=== PATIENT | female | born 1975 | race Caucasian/White ===

== ENCOUNTER 2018-04-11 22:20 | Emergency (ER) | payer MEDICAID ==
[~2018-04-11] VITALS: Ht 172.7 cm; Wt 82.0 kg
[~2018-04-11 22:20] MED LIST: AZIT500T5 PO; DEC4T PO
[2018-04-11 22:28] VITALS: BP 129/84
[2018-04-11 23:12] LABS: URINE HCG NEGATIVE (NEG)
[2018-04-11 23:33] LABS: CLARITY,URINE CLOUDY (Clear); COLOR,URINE YELLOW (Yellow); GLUCOSE, URINE NEGATIVE (Neg); KETONES,URINE NEGATIVE (Neg); LEUKOCYTE ESTERASE ,URINE NEGATIVE (Neg); NITRITES, URINE NEGATIVE (Neg); OCCULT BLOOD,URINE NEGATIVE (Neg); PROTEIN,URINE NEGATIVE (Neg); UROBILINOGEN,URINE 0.2 E.U/dL (0.2-1.0)
[2018-04-11 23:44] LABS: MUCUS STRANDS MANY /LPF (Neg); SQUAMOUS EPITHELIAL CELL,UR MANY /LPF (FEW); UA COLLECTION TYPE CLN CATCH MIDSTREAM
[2018-04-11 23:46] LABS: AMORPHOUS URATES 4+
[2018-04-11 23:47] LABS: BACTERIA,URINE 1+ /HPF (Neg); RBC,URINE NONE SEEN /HPF (0-2)
[2018-04-12] MEDS ORDERED: SULF1TAB49 PO (00:01)
[2018-04-12] MEDS ORDERED: sulfamethoxazole/trimethoprim DS (800/160mg) tablet PO ONE (00:05)
== END 2018-04-12 00:19 | disposition home or self-care (01) ==
LOC: ER 22:20
DX: N39.0 Urinary tract infection, site not specified (principal); R07.81 Pleurodynia; Z88.0 Allergy status to penicillin; Z88.6 Allergy status to analgesic agent; Z79.2 Long term (current) use of antibiotics
CPT/HCPCS: 81001; 81025; 99284

== ENCOUNTER 2018-06-16 15:56 | Emergency (ER) | payer MEDICAID ==
[~2018-06-16] VITALS: Ht 170.2 cm; Wt 100.0 kg
[2018-06-16 16:03] VITALS: BP 128/88
[2018-06-16] MEDS ORDERED: TETRACAINE 0.5% 5 ML OPHTHALMIC DROPS LEFTEYE ONE (16:10)
[2018-06-16] MEDS ORDERED: ciprofloxacin 0.3% 2.5ml ophthalmic solution LEFTEYE ONE (16:10)
== END 2018-06-16 16:42 | disposition home or self-care (01) ==
LOC: ER 15:56
DX: H10.9 Unspecified conjunctivitis (principal); Z88.6 Allergy status to analgesic agent; Z88.0 Allergy status to penicillin
CPT/HCPCS: 99282

== ENCOUNTER 2018-06-30 01:24 | Emergency (ER) | payer MEDICAID ==
[~2018-06-30] VITALS: Ht 170.2 cm; Wt 101.8 kg
[2018-06-30 01:26] VITALS: BP 140/88
--- NOTE | 2018-06-30 01:29 | NUR ---
DR CHANG AT BEDSIDE WITH PT
[2018-06-30] MEDS ORDERED: CYCL-1 PO (01:34)
[2018-06-30] MEDS ORDERED: ACET-3067 PO (01:34)
[2018-06-30] MEDS ORDERED: cyclobenzaprine 10mg tablet PO ONE (01:35)
[2018-06-30] MEDS ORDERED: ketorolac trometh inj. 60 MG/2 ML VIAL IM ONE (01:35)
== END 2018-06-30 01:52 | disposition home or self-care (01) ==
LOC: ER 01:24
DX: G89.29 Other chronic pain (principal); M54.5 Low back pain; Z88.6 Allergy status to analgesic agent; Z88.0 Allergy status to penicillin
CPT/HCPCS: 96372; 99283; J1885

== ENCOUNTER 2018-07-08 08:19 | Emergency (ER) | payer MEDICAID ==
[~2018-07-08] VITALS: Ht 170.2 cm; Wt 101.8 kg
[~2018-07-08 08:19] MED LIST changes: +CYCL-1 PO
[2018-07-08 09:02] VITALS: BP 129/79
[2018-07-08 11:32] LABS: D-DIMER 0.66 MG/L FEU (0-0.50)
[2018-07-08] MEDS ORDERED: dexamethasone 4mg tablet PO STA (12:58)
[2018-07-08] MEDS ORDERED: ketorolac trometh inj. 60 MG/2 ML VIAL IM ONE ×2 (13:00→13:25)
--- NOTE | 2018-07-08 13:37 | NUR ---
torodol 60mg placed in sharps container. called pharmacy to reissue new dose. dose given to pt.
== END 2018-07-08 13:43 | disposition home or self-care (01) ==
LOC: ER 08:20
DX: M25.561 Pain in right knee (principal); I88.9 Nonspecific lymphadenitis, unspecified; M19.90 Unspecified osteoarthritis, unspecified site; Z88.0 Allergy status to penicillin; Z88.6 Allergy status to analgesic agent; Z79.2 Long term (current) use of antibiotics; Z79.899 Other long term (current) drug therapy
CPT/HCPCS: 36415; 85379; 93971; 96372; 99284; J1885; J8540

== ENCOUNTER 2018-07-15 07:53 | Emergency (ER) | payer MEDICAID ==
[~2018-07-15] VITALS: Ht 170.2 cm; Wt 105.0 kg
[2018-07-15 08:05] VITALS: BP 129/88
[2018-07-15] MEDS ORDERED: predniSONE 20 mg tablet PO ONE (08:45)
[2018-07-15] MEDS ORDERED: AZIT250T83 PO (08:51)
== END 2018-07-15 10:19 | disposition home or self-care (01) ==
LOC: ER 07:54
DX: J06.9 Acute upper respiratory infection, unspecified (principal); G89.29 Other chronic pain; Z88.0 Allergy status to penicillin; Z88.6 Allergy status to analgesic agent; Z79.899 Other long term (current) drug therapy
CPT/HCPCS: 99283; J7512

== ENCOUNTER 2018-07-17 23:23 | Emergency (ER) | payer MEDICAID ==
[~2018-07-17] VITALS: Ht 170.2 cm; Wt 85.0 kg
[~2018-07-17 23:23] MED LIST changes: +AZIT250T83 PO
[2018-07-17] MEDS ORDERED: GUAI120015 PO (23:33)
[2018-07-17 23:55] VITALS: BP 145/85
== END 2018-07-17 23:57 | disposition home or self-care (01) ==
LOC: ER 23:24
DX: J06.9 Acute upper respiratory infection, unspecified (principal); F41.9 Anxiety disorder, unspecified; G89.29 Other chronic pain; Z88.6 Allergy status to analgesic agent; Z88.0 Allergy status to penicillin
CPT/HCPCS: 93005; 99283; 99284

== ENCOUNTER 2018-07-25 18:57 | Emergency (ER) | payer MEDICAID ==
[~2018-07-25] VITALS: Ht 167.6 cm; Wt 96.8 kg
[~2018-07-25 18:57] MED LIST changes: -AZIT250T83 PO; +GUAI120015 PO
[2018-07-25] MEDS ORDERED: ipratropium/albuterol 3ml nebule NEB ONE (19:10)
[2018-07-25 19:12] VITALS: BP 140/83
[2018-07-25] MEDS ORDERED: PRED20TA PO (19:35)
[2018-07-25] MEDS ORDERED: ALBU6.7H INH (19:35)
== END 2018-07-25 20:01 | disposition home or self-care (01) ==
LOC: ER 18:58
DX: J45.909 Unspecified asthma, uncomplicated (principal); G89.29 Other chronic pain; Z88.0 Allergy status to penicillin; Z88.6 Allergy status to analgesic agent; Z79.899 Other long term (current) drug therapy; Z79.2 Long term (current) use of antibiotics; Z59.0 Homelessness
CPT/HCPCS: 71046; 94640; 94760; 99283

== ENCOUNTER 2018-10-09 15:59 | Emergency (ER) | payer MEDICAID ==
[~2018-10-09] VITALS: Ht 172.7 cm; Wt 104.5 kg
[~2018-10-09 15:59] MED LIST changes: +ALBU6.7H INH
[2018-10-09 16:13] VITALS: BP 142/103
[2018-10-09] MEDS ORDERED: ketorolac trometh inj. 60 MG/2 ML VIAL IM ONE (17:55)
== END 2018-10-09 18:15 | disposition home or self-care (01) ==
LOC: ER 15:59
DX: S29.011A Strain of muscle and tendon of front wall of thorax, initial encounter (principal); G89.29 Other chronic pain; Z88.0 Allergy status to penicillin; Z88.6 Allergy status to analgesic agent; Z79.899 Other long term (current) drug therapy; Z59.0 Homelessness; X58.XXXA Exposure to other specified factors, initial encounter; Y93.89 Activity, other specified; Y92.89 Other specified places as the place of occurrence of the external cause; Y99.8 Other external cause status
CPT/HCPCS: 71046; 96372; 99283; J1885

== ENCOUNTER 2019-01-25 07:25 | Emergency (ER) | payer MEDICAID ==
[~2019-01-25] VITALS: Ht 170.2 cm; Wt 102.7 kg
[~2019-01-25 07:25] MED LIST changes: -ALBU6.7H INH; +ALBU6.7H9 INH; -AZIT500T5 PO; +AZIT500T9 PO
[2019-01-25 07:53] LABS: CLARITY,URINE CLOUDY (Clear); COLOR,URINE YELLOW (Yellow); GLUCOSE, URINE NEGATIVE (Neg); KETONES,URINE NEGATIVE (Neg); LEUKOCYTE ESTERASE ,URINE MODERATE (Neg); NITRITES, URINE NEGATIVE (Neg); OCCULT BLOOD,URINE LARGE (Neg); PROTEIN,URINE NEGATIVE (Neg); UROBILINOGEN,URINE 0.2 E.U/dL (0.2-1.0)
[2019-01-25 07:56] LABS: UA COLLECTION TYPE CLN CATCH MIDSTREAM
[2019-01-25 07:59] LABS: SQUAMOUS EPITHELIAL CELL,UR MANY /LPF (FEW)
[2019-01-25 08:00] LABS: BACTERIA,URINE 2+ /HPF (Neg); RBC,URINE 0-2 /HPF (0-2); WBC,URINE 50-100 /HPF (0-4)
--- NOTE | 2019-01-25 08:12 | NUR ---
DR CURRY NOTIFIED PT URINE REJECTED FOR CULTURE, NO ORDER RECEIVED AT THIS TIME.
[2019-01-25 08:27] LABS: BASOPHILS % (AUTO) 0.8 % (0-1); EOSINOPHILS # (AUTO) 0.2 X10'3 (0-0.9); EOSINOPHILS % (AUTO) 3.6 % (0-6); HEMATOCRIT 34.5 % (35.0-45.0); HEMOGLOBIN 11.7 g/dl (12.0-16.0); LYMPHOCYTES # (AUTO) 1.7 X10'3 (1.1-4.8); LYMPHOCYTES % (AUTO) 28.8 % (21-51); MEAN CORPUSCULAR HEMOGLOBIN 29.4 PG (27.0-31.0); MEAN CORPUSCULAR HGB CONC 33.9 g/dL (33.0-36.5); MEAN CORPUSCULAR VOLUME 86.8 FL (78-98); MEAN PLATELET VOLUME 8.3 FL (7.4-10.4); MONOCYTES # (AUTO) 0.4 X10'3 (0-0.9); MONOCYTES % (AUTO) 7.5 % (2-12); NEUTROPHILS # (AUTO) 3.5 X10'3 (1.8-7.7); NEUTROPHILS % (AUTO) 59.3 % (42-75); PLATELET COUNT 207 X10'3 (140-440); RED BLOOD COUNT 3.97 X10'6 (4.20-5.60); RED CELL DISTRIBUTION WIDTH 13.4 % (11.5-14.5); WHITE BLOOD COUNT 5.9 X10'3 (4.5-11.0)
[2019-01-25 08:28] LABS: URINE HCG NEGATIVE (NEG)
[2019-01-25 08:34] LABS: ALANINE AMINOTRANSFERASE 17 U/L (12-78); ALBUMIN 3.2 G/DL (3.4-5.0); ALBUMIN/GLOBULIN RATIO 0.8 (1.1-1.5); ALKALINE PHOSPHATASE 61 IU/L (46-116); ANION GAP 3 (8-16); ASPARTATE AMINO TRANSFERASE 9 U/L (10-37); BILIRUBIN,TOTAL 0.1 MG/DL (0.1-1.0); BLOOD UREA NITROGEN 10 MG/DL (7-18); BUN/CREATININE RATIO 11.9 (6.6-38.0); CALCIUM 8.6 MG/DL (8.5-10.1); CHLORIDE 107 MMOL/L (99-107); CREATININE 0.84 MG/DL (0.40-0.90); GLUCOSE 102 MG/DL (70-104); LIPASE 234 U/L (73-393); SODIUM 139 MMOL/L (135-145); TOTAL CARBON DIOXIDE 28.8 MMOL/L (24-32); eGFR 75 ML/MIN
[2019-01-25] MEDS ORDERED: acetaminophen 325mg tablet PO ONE (08:45)
[2019-01-25] MEDS ORDERED: SULF1TAB49 PO (09:55)
--- NOTE | 2019-01-25 10:05 | NUR ---
STRAIGHT CATH URINE ORDERED, PT REFUSED STRAIGHT CATH, GAVE PT 5 WIPES ADN INSTRUCTED HOW TO PROVIDE CLEAN CATCH URINE, WILL NOTIFY PATRICIO HERRERA PT RETURN FOR EXAM, GAVE SBAR REPORT TO NEIL POWELL
--- NOTE | 2019-01-25 10:28 | NUR ---
DR CURRY AT BEDSIDE FOR VAGINAL EXAM, ROSALBA POWELL AT BEDSIDE DURING EXAM
[2019-01-25 10:49] LABS: CLARITY,URINE CLEAR (Clear); COLOR,URINE STRAW (Yellow); GLUCOSE, URINE NEGATIVE (Neg); KETONES,URINE NEGATIVE (Neg); LEUKOCYTE ESTERASE ,URINE TRACE (Neg); NITRITES, URINE NEGATIVE (Neg); OCCULT BLOOD,URINE SMALL (Neg); PH,URINE 5.5 (4.8-8.0); PROTEIN,URINE NEGATIVE (Neg); UROBILINOGEN,URINE 0.2 E.U/dL (0.2-1.0)
[2019-01-25 10:55] VITALS: BP 136/71
[2019-01-25 11:04] LABS: UA COLLECTION TYPE CLN CATCH MIDSTREAM
[2019-01-25 11:16] LABS: BACTERIA,URINE FEW /HPF (Neg); MUCUS STRANDS FEW /LPF (Neg); RBC,URINE 0-2 /HPF (0-2); SQUAMOUS EPITHELIAL CELL,UR MODERATE /LPF (FEW); WBC,URINE 0-4 /HPF (0-4)
== END 2019-01-25 10:56 | disposition home or self-care (01) ==
LOC: ER 07:26
DX: N83.202 Unspecified ovarian cyst, left side (principal); N39.0 Urinary tract infection, site not specified; G89.29 Other chronic pain; Z87.442 Personal history of urinary calculi; Z59.0 Homelessness; Z88.0 Allergy status to penicillin; Z88.6 Allergy status to analgesic agent; Z79.899 Other long term (current) drug therapy
CPT/HCPCS: 36415; 76830; 76856; 80053; 81001; 81025; 83690; 85025; 87088; 99284

== ENCOUNTER 2019-06-08 16:30 | Emergency (ER) | payer MEDICAID ==
[~2019-06-08] VITALS: Ht 170.2 cm; Wt 102.0 kg
[2019-06-08 16:33] VITALS: BP 135/93
== END 2019-06-08 19:43 | disposition home or self-care (01) ==
LOC: ER 16:30
DX: S90.122A Contusion of left lesser toe(s) without damage to nail, initial encounter (principal); G89.29 Other chronic pain; Z87.442 Personal history of urinary calculi; Z59.0 Homelessness; Z88.0 Allergy status to penicillin; Z88.6 Allergy status to analgesic agent; Z79.2 Long term (current) use of antibiotics; W22.8XXA Striking against or struck by other objects, initial encounter; Y93.89 Activity, other specified; Y92.89 Other specified places as the place of occurrence of the external cause; Y99.9 Unspecified external cause status
CPT/HCPCS: 73660; 99283